=== PATIENT | female | born 1980 | race Caucasian/White ===

== ENCOUNTER 2017-04-29 01:22 | Emergency (ER) | payer BC ==
[~2017-04-29] VITALS: Ht 167.6 cm; Wt 99.0 kg
[~2017-04-29 01:22] MED LIST: EXCEDRIN MIGRA1 EAC3 PO; ULTRAM50 MG PO; WOMEN'S DAILY1 EAC1 PO; ZOFRAN4 MG PO
[2017-04-29 02:20] LABS: HEMATOCRIT 33.4 % (36.0-46.0); HEMOGLOBIN 11.5 G/DL (11.9-15.5); MCH 30.6 PG (29.0-34.0); MCHC 34.4 G/DL (30.0-36.0); MCV 88.8 FL (83-99); PLATELET COUNT 211 K/uL (156-360); RBC DIS.WIDTH-SD 41.8 % (39-53); RED BLOOD COUNT 3.76 M/uL (3.80-5.20); WHITE BLOOD COUNT 8.4 K/uL (4.1-10.2)
[2017-04-29 02:33] LABS: CHLORIDE 108 mEq/L (99-109); POTASSIUM 4.4 mEq/L (3.7-5.4); SODIUM 139 mEq/L (136-147)
[2017-04-29 02:35] LABS: GLUCOSE 96 mg/dL (70-99)
[2017-04-29 02:39] LABS: CREATININE 0.8 mg/dL (0.6-1.3); GFR ESTIMATE (CALCULATED) > 59 mL/min/
[2017-04-29 02:40] LABS: UREA NITROGEN (BUN) 22 mg/dL (9-23)
[2017-04-29 02:49] LABS: QUANTITATIVE HCG < 4.0 MIU/ML
[2017-04-29 02:59] LABS: SOURCE SWAB
[2017-04-29] MEDS ORDERED: DOXYCYCLINE HY100 MG PO (03:40)
[2017-04-29 04:14] VITALS: BP 113/64
== END 2017-04-29 04:15 | disposition home or self-care (01) ==
LOC: EME 01:22
PROVIDERS: Emergency Medicine
DX: T19.2XXA Foreign body in vulva and vagina, initial encounter (principal); N73.9 Female pelvic inflammatory disease, unspecified; Z90.49 Acquired absence of other specified parts of digestive tract; Z91.040 Latex allergy status; Z88.6 Allergy status to analgesic agent; Z88.5 Allergy status to narcotic agent; Z88.2 Allergy status to sulfonamides; Z88.1 Allergy status to other antibiotic agents
CPT/HCPCS: 80048; 84702; 85027; 87210; 87491; 87591; 99281; 99284